=== PATIENT | male | born 1960 | race Native Hawaiian/Other Pacific Islander ===

== ENCOUNTER 2020-11-14 09:35 | Emergency (ER) | payer OTHER ==
[~2020-11-14] VITALS: Ht 167.6 cm; Wt 68.0 kg
[2020-11-14] MEDS ORDERED: LISINOPRIL20 MG PO (09:52)
[2020-11-14] MEDS ORDERED: CEPHALEXIN500 MG PO (10:05)
[2020-11-14 10:21] VITALS: BP 223/117
== END 2020-11-14 10:21 | disposition home or self-care (01) ==
LOC: ER 09:35
DX: L02.413 Cutaneous abscess of right upper limb (principal); Z79.899 Other long term (current) drug therapy